=== PATIENT | female | born 1945 | race Asian ===

== ENCOUNTER 2022-06-17 19:52 | Inpatient (IN) | payer OTHER ==
[~2022-06-17] VITALS: Ht 162.6 cm; Wt 71.2 kg
[2022-06-17 20:10] VITALS: BP_SYST 141
[2022-06-17] MEDS ORDERED: methylPREDNISolone SOD SUCC/PF 62.5 MG/ML VIAL IVP ONE (20:45)
[2022-06-17] MEDS ORDERED: cefTRIAXone 1 GM IVPB PREMIX 50 ML IV ONE (20:45)
[2022-06-17] MEDS ORDERED: AZITHROMYCIN 500 MG in NS 250 ML IV ONE (20:45)
[2022-06-17] MEDS ORDERED: AZITHROMYCIN 500 MG/VIAL (ZITHROMAX) IV ONE (21:14)
[2022-06-17 21:31] LABS: BASOPHILS % (AUTO) 0.4 % (0.0-2.0); EOSINOPHILS # (AUTO) 0.2 K/uL (0.0-0.4); EOSINOPHILS % (AUTO) 2.8 % (0.0-4.0); HEMATOCRIT 36.5 % (36-48); HEMOGLOBIN 12.1 g/dL (12.0-16.0); LYMPHOCYTES # (AUTO) 1.2 K/uL (1.0-5.5); LYMPHOCYTES % (AUTO) 14.2 % (20.5-51.5); MEAN CORPUSCULAR HEMOGLOBIN 31 pg (27-31); MEAN CORPUSCULAR HGB CONC 33 % (32-36); MEAN CORPUSCULAR VOLUME 93 fL (79.0-98.0); MONOCYTES # (AUTO) 0.8 K/uL (0.0-1.0); MONOCYTES % (AUTO) 9.1 % (1.7-9.3); NEUTROPHILS # (AUTO) 6.2 K/uL (1.8-7.7); NEUTROPHILS % (AUTO) 73.5 % (40.0-70.0); PLATELET COUNT (AUTO) 300 K/uL (130-430); RED BLOOD CELL COUNT(AUTO) 3.91 MIL/uL (4.2-6.2); RED CELL DISTRIBUTION WIDTH 13.8 % (9.0-15.0); WHITE BLOOD COUNT (AUTO) 8.4 K/uL (4.8-10.8)
[2022-06-17 21:35] LABS: ALANINE AMINOTRANSFERASE 12 U/L (12-78); ALBUMIN 3.1 g/dL (3.4-4.8); ANION GAP 7 (5-15); ASPARTATE AMINOTRANSFERASE 21 U/L (10-37); CALCIUM 8.1 mg/dL (8.4-11.0); CHLORIDE 105 mmol/L (98-107); CREATININE 0.87 mg/dL (0.55-1.30); GLUCOSE 115 mg/dL (70-99); TOTAL BILIRUBIN 0.4 mg/dL (0.0-1.0); UREA NITROGEN, BLOOD 10 mg/dL (8-21)
[2022-06-17] MEDS ORDERED: HCT25 PO (21:40)
[2022-06-17] MEDS ORDERED: LOSA50TA3 PO (21:40)
[2022-06-17] MEDS ORDERED: ENOXAPARIN SODIUM 80 MG/0.8 ML SYRINGE SUBCUT ONE (22:00)
[2022-06-17] MEDS ORDERED: ASPIRIN 325 MG TABLET PO ONE (22:00)
[2022-06-17] MEDS ORDERED: *HEPARIN PER PHARMACY XX ONE (22:15)
[2022-06-17 22:43] LABS: PROTHROMBIN TIME 10.5 SECS (9.5-12.5)
[2022-06-17] MEDS ORDERED: HEPARIN SODIUM,PORCINE 2000 UNITS/0.4 ML BOLUS IVP PRN (23:15)
[2022-06-17] MEDS ORDERED: HEPARIN SODIUM,PORCINE 3000 UNITS/0.6 ML BOLUS IVP PRN (23:15)
[2022-06-17] MEDS ORDERED: HEPARIN 25,000 UNITS in 250 ML PREMIX IV PRN (23:15)
[2022-06-17 23:30] VITALS: BP_SYST 142
[2022-06-18] VITALS (7 sets, daily range): BP systolic 122–138
[2022-06-18] MEDS: D5/0.45 NS 1,000 ML IV SCH ×2 (01:25→18:00)
[2022-06-18 06:43] LABS: BASOPHILS % (AUTO) 0.2 % (0.0-2.0); HEMATOCRIT 37.7 % (36-48); HEMOGLOBIN 12.2 g/dL (12.0-16.0); LYMPHOCYTES # (AUTO) 0.6 K/uL (1.0-5.5); LYMPHOCYTES % (AUTO) 9.1 % (20.5-51.5); MEAN CORPUSCULAR HEMOGLOBIN 31 pg (27-31); MEAN CORPUSCULAR HGB CONC 33 % (32-36); MEAN CORPUSCULAR VOLUME 94 fL (79.0-98.0); MONOCYTES # (AUTO) 0.1 K/uL (0.0-1.0); MONOCYTES % (AUTO) 1.1 % (1.7-9.3); NEUTROPHILS # (AUTO) 5.9 K/uL (1.8-7.7); NEUTROPHILS % (AUTO) 89.6 % (40.0-70.0); PLATELET COUNT (AUTO) 287 K/uL (130-430); RED BLOOD CELL COUNT(AUTO) 4.02 MIL/uL (4.2-6.2); RED CELL DISTRIBUTION WIDTH 13.6 % (9.0-15.0); WHITE BLOOD COUNT (AUTO) 6.6 K/uL (4.8-10.8)
[2022-06-18] MEDS ORDERED: *LOVENOX 1MG/KG Q12H/PHARMACY XX PRN (09:00)
[2022-06-18] MEDS ORDERED: ENOXAPARIN SODIUM 80 MG/0.8 ML SYRINGE SUBCUT ONE (09:45)
[2022-06-18] MEDS: IPRATROPIUM/ALBUTEROL SULFATE 3 ML AMPUL.NEB (DUONEB) INH SCH ×2 (13:35→20:55)
[2022-06-18] MEDS: PROMETHAZINE-DM 6.25 MG-15 MG/5 ML UDC PO PRN (20:29)
[2022-06-18] MEDS: AZITHROMYCIN 250 MG in NS 250 ML IV SCH (20:30)
[2022-06-18] MEDS: ENOXAPARIN SODIUM 80 MG/0.8 ML SYRINGE SUBCUT SCH (20:34)
[2022-06-18] MEDS ORDERED: cefTRIAXone 1 GM IVPB PREMIX 50 ML IV SCH (21:00)
[2022-06-19] VITALS: BP_SYST 121; BP_SYST 140
[2022-06-19] MEDS: PIPERACILLIN/TAZO 2.25G/DEX-IS 50 ML IV SCH ×5 (00:28→23:16)
[2022-06-19] MEDS: IPRATROPIUM/ALBUTEROL SULFATE 3 ML AMPUL.NEB (DUONEB) INH SCH ×3 (01:14→14:04)
[2022-06-19] MEDS: D5/0.45 NS 1,000 ML IV SCH ×2 (01:22→20:49)
[2022-06-19 04:00] VITALS: BP_SYST 135
[2022-06-19 05:27] LABS: BASOPHILS % (AUTO) 0.4 % (0.0-2.0); EOSINOPHILS # (AUTO) 0.1 K/uL (0.0-0.4); EOSINOPHILS % (AUTO) 1.1 % (0.0-4.0); HEMATOCRIT 35.2 % (36-48); HEMOGLOBIN 11.4 g/dL (12.0-16.0); LYMPHOCYTES % (AUTO) 22.1 % (20.5-51.5); MEAN CORPUSCULAR HEMOGLOBIN 31 pg (27-31); MEAN CORPUSCULAR HGB CONC 33 % (32-36); MEAN CORPUSCULAR VOLUME 94 fL (79.0-98.0); MONOCYTES # (AUTO) 0.6 K/uL (0.0-1.0); MONOCYTES % (AUTO) 6.4 % (1.7-9.3); NEUTROPHILS # (AUTO) 6.2 K/uL (1.8-7.7); PLATELET COUNT (AUTO) 277 K/uL (130-430); RED BLOOD CELL COUNT(AUTO) 3.75 MIL/uL (4.2-6.2); RED CELL DISTRIBUTION WIDTH 13.7 % (9.0-15.0); WHITE BLOOD COUNT (AUTO) 8.9 K/uL (4.8-10.8)
[2022-06-19 05:45] LABS: ANION GAP 7 (5-15); CALCIUM 7.6 mg/dL (8.4-11.0); CHLORIDE 107 mmol/L (98-107); CREATININE 0.78 mg/dL (0.55-1.30); GLUCOSE 110 mg/dL (70-99); UREA NITROGEN, BLOOD 18 mg/dL (8-21)
[2022-06-19 05:54] LABS: PROTHROMBIN TIME 10.8 SECS (9.5-12.5)
[2022-06-19 06:05] LABS: ALANINE AMINOTRANSFERASE 11 U/L (12-78); ALBUMIN 2.8 g/dL (3.4-4.8); ASPARTATE AMINOTRANSFERASE 14 U/L (10-37); CHOLESTEROL 100 mg/dL (<200); HDL CHOLESTEROL 56 mg/dL (>55); THYROID STIMULATING HORMONE 0.08 uIu/mL (0.34-4.82); TOTAL BILIRUBIN 0.2 mg/dL (0.0-1.0); TRIGLYCERIDES 72 mg/dL (30-150)
[2022-06-19] MEDS: PROMETHAZINE-DM 6.25 MG-15 MG/5 ML UDC PO PRN (07:02)
[2022-06-19 08:00] VITALS: BP_SYST 124
[2022-06-19] MEDS: ENOXAPARIN SODIUM 80 MG/0.8 ML SYRINGE SUBCUT SCH (08:27)
[2022-06-19] MEDS: HYDROCHLOROTHIAZIDE 25 MG TABLET (HCTZ) PO SCH (08:27)
[2022-06-19] MEDS: LOSARTAN POTASSIUM 50 MG TABLET (COZAAR) PO SCH (08:28)
[2022-06-19] MEDS ORDERED: POTASSIUM CHLORIDE 20 MEQ TAB.PRT.SR PO ONE ×2 (10:45→11:00)
[2022-06-19 11:43] VITALS: BP_SYST 138
[2022-06-19 16:24] VITALS: BP_SYST 107
[2022-06-19 19:30] VITALS: BP_SYST 138
[2022-06-19] MEDS: ENOXAPARIN SODIUM 30 MG/0.3 ML SYRINGE SUBCUT SCH (20:49)
[2022-06-19] MEDS: AZITHROMYCIN 250 MG in NS 250 ML IV SCH (20:49)
[2022-06-20 01:04] VITALS: BP_SYST 135
[2022-06-20] MEDS: IPRATROPIUM/ALBUTEROL SULFATE 3 ML AMPUL.NEB (DUONEB) INH SCH ×5 (02:42→19:56)
[2022-06-20] MEDS: PIPERACILLIN/TAZO 2.25G/DEX-IS 50 ML IV SCH ×4 (05:11→23:57)
[2022-06-20 07:29] LABS: BASOPHILS # (AUTO) 0.1 K/uL (0.0-0.2); BASOPHILS % (AUTO) 1.6 % (0.0-2.0); EOSINOPHILS # (AUTO) 0.2 K/uL (0.0-0.4); EOSINOPHILS % (AUTO) 3.1 % (0.0-4.0); HEMATOCRIT 39.4 % (36-48); HEMOGLOBIN 12.9 g/dL (12.0-16.0); LYMPHOCYTES # (AUTO) 1.4 K/uL (1.0-5.5); LYMPHOCYTES % (AUTO) 17.6 % (20.5-51.5); MEAN CORPUSCULAR HEMOGLOBIN 31 pg (27-31); MEAN CORPUSCULAR HGB CONC 33 % (32-36); MEAN CORPUSCULAR VOLUME 94 fL (79.0-98.0); MONOCYTES # (AUTO) 0.5 K/uL (0.0-1.0); MONOCYTES % (AUTO) 6.2 % (1.7-9.3); NEUTROPHILS # (AUTO) 5.7 K/uL (1.8-7.7); NEUTROPHILS % (AUTO) 71.5 % (40.0-70.0); PLATELET COUNT (AUTO) 329 K/uL (130-430); RED CELL DISTRIBUTION WIDTH 13.7 % (9.0-15.0); WHITE BLOOD COUNT (AUTO) 7.9 K/uL (4.8-10.8)
[2022-06-20 07:43] LABS: ANION GAP 10 (5-15); CALCIUM 8.6 mg/dL (8.4-11.0); CHLORIDE 104 mmol/L (98-107); CREATININE 0.84 mg/dL (0.55-1.30); GLUCOSE 109 mg/dL (70-99); UREA NITROGEN, BLOOD 13 mg/dL (8-21)
[2022-06-20 07:47] VITALS: BP_SYST 134
[2022-06-20] MEDS: SPIRONOLACTONE 25 MG TABLET (ALDACTONE) PO SCH (08:47)
[2022-06-20] MEDS: LOSARTAN POTASSIUM 50 MG TABLET (COZAAR) PO SCH (08:48)
[2022-06-20] MEDS: HYDROCHLOROTHIAZIDE 25 MG TABLET (HCTZ) PO SCH (08:48)
[2022-06-20 11:43] VITALS: BP_SYST 136
[2022-06-20 16:00] VITALS: BP_SYST 130
[2022-06-20 19:20] VITALS: BP_SYST 133
[2022-06-20] MEDS: AZITHROMYCIN 250 MG in NS 250 ML IV SCH (20:53)
[2022-06-20] MEDS: ENOXAPARIN SODIUM 30 MG/0.3 ML SYRINGE SUBCUT SCH (20:53)
[2022-06-20] MEDS: D5/0.45 NS 1,000 ML IV SCH (20:54)
[2022-06-21] MEDS: IPRATROPIUM/ALBUTEROL SULFATE 3 ML AMPUL.NEB (DUONEB) INH SCH ×4 (01:25→20:17)
[2022-06-21] MEDS: PIPERACILLIN/TAZO 2.25G/DEX-IS 50 ML IV SCH ×4 (05:36→23:25)
[2022-06-21 07:43] LABS: ALANINE AMINOTRANSFERASE 30 U/L (12-78); ALBUMIN 3.3 g/dL (3.4-4.8); ANION GAP 9 (5-15); ASPARTATE AMINOTRANSFERASE 35 U/L (10-37); CALCIUM 8.8 mg/dL (8.4-11.0); CHLORIDE 102 mmol/L (98-107); CREATININE 0.83 mg/dL (0.55-1.30); GLUCOSE 118 mg/dL (70-99); TOTAL BILIRUBIN 0.6 mg/dL (0.0-1.0); UREA NITROGEN, BLOOD 11 mg/dL (8-21)
[2022-06-21] MEDS: HYDROCHLOROTHIAZIDE 25 MG TABLET (HCTZ) PO SCH (09:40)
[2022-06-21] MEDS: LOSARTAN POTASSIUM 50 MG TABLET (COZAAR) PO SCH (09:40)
[2022-06-21] MEDS: SPIRONOLACTONE 25 MG TABLET (ALDACTONE) PO SCH (09:40)
[2022-06-21 09:47] VITALS: BP_SYST 119
[2022-06-21 11:45] VITALS: BP_SYST 121
[2022-06-21] MEDS ORDERED: predniSONE 20 MG TABLET PO ONE (14:30)
[2022-06-21 17:08] VITALS: BP_SYST 124
[2022-06-21] MEDS: D5/0.45 NS 1,000 ML IV SCH (19:57)
[2022-06-21 20:00] VITALS: BP_SYST 121
[2022-06-21] MEDS: AZITHROMYCIN 250 MG in NS 250 ML IV SCH (20:35)
[2022-06-21] MEDS: predniSONE 20 MG TABLET PO SCH (20:37)
[2022-06-21] MEDS: ENOXAPARIN SODIUM 30 MG/0.3 ML SYRINGE SUBCUT SCH (20:37)
[2022-06-22] MEDS: IPRATROPIUM/ALBUTEROL SULFATE 3 ML AMPUL.NEB (DUONEB) INH SCH ×3 (02:00→13:39)
[2022-06-22 04:00] VITALS: BP_SYST 122
[2022-06-22] MEDS: PIPERACILLIN/TAZO 2.25G/DEX-IS 50 ML IV SCH ×2 (04:11→12:31)
[2022-06-22 07:04] LABS: BASOPHILS % (AUTO) 0.3 % (0.0-2.0); EOSINOPHILS % (AUTO) 0.1 % (0.0-4.0); HEMATOCRIT 44.1 % (36-48); HEMOGLOBIN 14.1 g/dL (12.0-16.0); LYMPHOCYTES % (AUTO) 8.6 % (20.5-51.5); MEAN CORPUSCULAR HEMOGLOBIN 30 pg (27-31); MEAN CORPUSCULAR HGB CONC 32 % (32-36); MEAN CORPUSCULAR VOLUME 94 fL (79.0-98.0); MONOCYTES # (AUTO) 0.3 K/uL (0.0-1.0); MONOCYTES % (AUTO) 2.2 % (1.7-9.3); NEUTROPHILS # (AUTO) 10.5 K/uL (1.8-7.7); NEUTROPHILS % (AUTO) 88.8 % (40.0-70.0); PLATELET COUNT (AUTO) 396 K/uL (130-430); RED BLOOD CELL COUNT(AUTO) 4.68 MIL/uL (4.2-6.2); RED CELL DISTRIBUTION WIDTH 13.8 % (9.0-15.0); WHITE BLOOD COUNT (AUTO) 11.8 K/uL (4.8-10.8)
[2022-06-22 07:17] LABS: ANION GAP 10 (5-15); CALCIUM 9.1 mg/dL (8.4-11.0); CHLORIDE 100 mmol/L (98-107); CREATININE 1.04 mg/dL (0.55-1.30); GLUCOSE 140 mg/dL (70-99); UREA NITROGEN, BLOOD 20 mg/dL (8-21)
[2022-06-22 08:00] VITALS: BP_SYST 136
[2022-06-22] MEDS: SPIRONOLACTONE 25 MG TABLET (ALDACTONE) PO SCH (08:54)
[2022-06-22] MEDS: HYDROCHLOROTHIAZIDE 25 MG TABLET (HCTZ) PO SCH (08:55)
[2022-06-22] MEDS: LOSARTAN POTASSIUM 50 MG TABLET (COZAAR) PO SCH (08:55)
[2022-06-22] MEDS: predniSONE 20 MG TABLET PO SCH (08:55)
[2022-06-22] MEDS ORDERED: SPIR25TA PO (11:22)
[2022-06-22] MEDS ORDERED: AMOX-423 PO (11:23)
[2022-06-22 11:28] VITALS: BP_SYST 139
[2022-06-22 13:13] VITALS: BP_SYST 132
[2022-06-22 16:00] VITALS: BP_SYST 132
== END 2022-06-22 16:33 | disposition home or self-care (01) | DRG 178 ==
LOC: SED 19:52 → STU 22:08 → SMU 06-21 10:28
PROVIDERS: ADMIT Specialist; ATTEND Specialist
DX: J69.0 Pneumonitis due to inhalation of food and vomit (principal); E44.1 Mild protein-calorie malnutrition; I24.8 Other forms of acute ischemic heart disease; R13.10 Dysphagia, unspecified; I10 Essential (primary) hypertension; Z20.822 Contact with and (suspected) exposure to COVID-19; Z79.899 Other long term (current) drug therapy
CPT/HCPCS: 36415; 36600; 70450-TC; 70470-TC; 71045; 76376; 76536-TC; 80048; 80053; 80061; 82533; 82803-TC; 83605; 83735; 83880; 84443; 84484; 85025; 85610-TC; 85730-TC; 87040; 92610-GN; 93005; 93306; 94010; 94640; 94760; 96365; 96375; 97116-GP; 97163-GP; 99291; G0378; J0456; J0696; J1644; J1650; J2543; J2930; J7050; J7512